=== PATIENT | female | born 1995 | race Caucasian/White ===

== ENCOUNTER 2024-12-25 14:00 | Emergency (ER) | payer OTHER ==
[2024-12-25] MEDS ORDERED: Sodium Chloride 0.9% 10 ML Syringe FLUSH PRN (14:14)
[2024-12-25 14:24] LABS: BASOPHILS PERCENT AUTO 0.1 % (0.0-1.0); EOSINOPHILS PERCENT AUTO 0.7 % (1.0-3.0); LYMPHOCYTES PERCENT AUTO 19.9 % (20.5-50.1); MONOCYTES PERCENT AUTO 6.6 % (2-8); NEUTROPHILS PERCENT AUTO 72.7 % (42.2-75.2); PLATELET COUNT,PLT 305 10^3/uL (150-450); RED BLOOD CELL COUNT 4.39 10^6/uL (4.2-5.4); WHITE BLOOD CELL COUNT,WBC 9.5 10^3/uL (5.0-10.0)
[2024-12-25 14:26] LABS: APPEARANCE,URINE CLEAR (CLEAR); GLUCOSE,URINE NEGATIVE (NEGATIVE); OCCULT BLOOD,URINE NEGATIVE (NEGATIVE)
[2024-12-25 14:44] LABS: A/G RATIO 1.0; ALANINE AMINOTRANSFERASE,ALT 36.0 U/L (14-59); ASPARTATE AMNIOTRANSFERASE,AST 24.0 U/L (15-37); BILIRUBIN TOTAL 0.7 mg/dL (0.2-1.0); BLOOD UREA NITROGEN,BUN 6.0 mg/dL (7-18); CARBON DIOXIDE,CO2 25.0 mmol/L (21-32); CHLORIDE,CL 104.0 mmol/L (98-107); CREATININE 0.51 mg/dL (0.55-1.02); EST CRCL DRUG DOSING (CG) 137.06 mL/min; GLUCOSE RANDOM 99.0 mg/dL (70-99); POTASSIUM,K 3.8 mmol/L (3.5-5.1); PROTEIN TOTAL,TP 7.5 g/dL (6.4-8.2); SODIUM,NA 138.0 mmol/L (136-145)
[2024-12-25 14:45] LABS: ESTIMATED GFR 131.0 mL/min (>=60)
== END 2024-12-26 12:20 | disposition home or self-care (01) ==
LOC: DL.ED 14:00
DX: O20.8 Other hemorrhage in early pregnancy (principal); Z88.8 Allergy status to other drugs, medicaments and biological substances; Z3A.12 12 weeks gestation of pregnancy
CPT/HCPCS: 36415; 80053; 81003; 82272; 83735; 84702; 85014; 85018; 85025; 86850; 86900; 86901; 86920; 86922; 96361; 96374; 96375; 96376; 99285; J2470; J2765; J7030; 99283